=== PATIENT | female | born 1965 | race Caucasian/White ===

== ENCOUNTER → 2016-12-04 | Outpatient (CLI) | payer OTHER ==
[~2016-12-04] MED LIST: AMBIEN10 MG PO; AMBIEN5 MG PO; BACTRIM,SEPT1 TABLET PO; CIPRO500 MG PO; DAILY VITE1 EAC1 PO; DOCUSATE SODIU100 MG PO; ENDOCET 5-3251 EACH PO; FIORICET,ESG1 TABLET PO; FISH OIL500 MG PO; FLEXERIL10 MG PO; FLORASTOR250 MG PO; HYDROCODON-ACE1 EAC7 PO; IMITREX25 MG PO; LISINOPRIL20 MG PO; MOTRIN800 MG PO; NICOTINE PATCH1 EAC2 TD; PERCOCET 5/31 TABLET PO; TRAMADOL HCL50 MG PO; ULTRAM50 MG PO
== END | disposition home or self-care (01) ==
LOC: RAD 18:09
DX: R60.0 Localized edema (principal); E87.70 Fluid overload, unspecified; R79.89 Other specified abnormal findings of blood chemistry
CPT/HCPCS: 93970

== ENCOUNTER → 2017-02-23 | Outpatient (CLI) | payer OTHER ==
[~2017-02-23] VITALS: Ht 182.9 cm; Wt 112.0 kg
[~2017-02-23] MED LIST changes: +LASIX40 MG PO
== END | disposition home or self-care (01) ==
LOC: AMB 07:11
DX: Z12.11 Encounter for screening for malignant neoplasm of colon (principal); D12.0 Benign neoplasm of cecum; D12.4 Benign neoplasm of descending colon; K57.30 Diverticulosis of large intestine without perforation or abscess without bleeding; K62.89 Other specified diseases of anus and rectum
CPT/HCPCS: 88305; J3010